=== PATIENT | female | born 1945 | race Caucasian/White ===

== ENCOUNTER 2019-07-12 00:25 | Inpatient (IN) | payer MEDICARE, SELFPAY ==
[2019-07-12 01:08] LABS: #Eosinphils 0.3 thou/uL (0.0-0.7); #Lymphocytes 1.7 thou/uL (1.20-3.40); #Monocytes 0.7 thou/uL (0.11-0.59); #Neutrophils 8.1 thou/uL (1.40-6.50); %Basophils 0.2 % (0.0-1.0); %Eosinophils 2.4 % (0.0-10.0); %Lymphocytes 15.4 % (21.0-51.0); %Monocytes 6.7 % (0.0-10.0); %Neutrophils 75.2 % (42.0-75.0); Hemoglobin 14.4 g/dL (12.0-16.0); Mean Corpuscular HGB CONC 33.7 g/dL (32.0-36.0); Mean Corpuscular Hemoglobin 30.8 pg (27.0-31.0); Mean Corpuscular Volume 91.4 fL (78.0-98.0); Mean Platelet Volume 7.6 fL (7.4-10.4); Platelet Count 173 thou/uL (130-400); RBC Distribution Width 13.2 % (11.5-14.5); Red Blood Cell (RBC) Count 4.69 mill/uL (4.20-5.40); White Blood Cell (WBC) Count 10.7 thou/uL (4.8-10.8)
[2019-07-12 01:15] LABS: INR-International Normal Ratio 1.1; PTT 34.1 SEC (22.9-36.1); Prothrombin Time 14.3 SEC (12.0-14.7)
[2019-07-12 01:24] LABS: ALT (SGPT) 9 U/L (8-55); AST (SGOT) 14 U/L (5-34); Albumin 3.7 g/dL (3.4-4.8); Alkaline Phosphatase 64 U/L (40-110); Anion Gap 14 mmol/L (10-20); BUN (Urea Nitrogen) 14 mg/dL (9.8-20.1); Bilirubin, Total 0.9 mg/dL (0.2-1.2); Calc. Creatinine Clearance 0 mL/min (70-130); Calcium 8.3 mg/dL (7.8-10.44); Carbon Dioxide 23 mmol/L (23-31); Chloride 101 mmol/L (98-107); Estimated GFR-MDRD 45; Globulin 3.4 g/dL (2.4-3.5); Glucose 144 mg/dL (83-110); Potassium 3.6 mmol/L (3.5-5.1); Protein, Total 7.1 g/dL (6.0-8.3); Sodium 134 mmol/L (136-145)
[2019-07-12 01:31] LABS: Bilirubin Negative (Negative); Blood, Urine 1+ (Negative); Clarity Clear (Clear); Glucose, Urine (Dipstick) Normal (Negative); Leukocyte Negative Leu/uL (Negative); Nitrite Negative (Negative); Protein, Urine (Dipstick) 50 mg/dL (Neg-Trace); Squamous Epithelial 0-3 HPF (0-3); Urobilinogen Normal mg/dL (Less than 2)
[2019-07-12] MEDS ORDERED: cefTRIAXone\\ROCEPHIN 1 GM VIAL ONE (01:41)
[2019-07-12 01:46] LABS: Bacteria/HPF 1+ HPF (None Seen)
[2019-07-12] MEDS ORDERED: Ondansetron PF 4 MG/2 ML Vial IVP PRN (02:35)
[2019-07-12] MEDS ORDERED: Acetaminophen 650 MG Suppository PR PRN (02:35)
[2019-07-12] MEDS ORDERED: Sodium Chloride 0.9% 1,000 ML IV SCH (02:45)
[2019-07-12] MEDS ORDERED: Acetaminophen 500 MG TAB ONE (03:11)
--- NOTE | 2019-07-12 03:28 | HP ---
TIME OF ASSESSMENT: 0200 hours. PRIMARY CARE PHYSICIAN: None. CHIEF COMPLAINT: Weakness. HISTORY OF PRESENT ILLNESS: Ms. Mo is a 74-year-old woman, who was in her usual state of health until this morning when she woke up feeling generally weak and having trouble standing due to weakness. The patient was mobilizing independently as she normally does yesterday. Denies feeling unwell in recent days. Today, she reports urinary frequency with small amounts of urine at a time. She denies any fevers, but does report chills throughout the day. Denies any nausea or vomiting. Reports mild lower abdominal discomfort. Denies having any chest pain or palpitations. Reports feeling slightly short of breath prior to coming in, but that has since settled. She does have a known history of COPD and uses her inhalers regularly. Denies having any recent cough or hemoptysis. No lower leg swelling or edema. No changes with her stools. Daughter and patient both state that she has had issues with weakness before as a result of a urinary tract infection. In the emergency department, she underwent urinalysis, which showed 50 protein, 1+ blood, 7 to 10 red blood cells, 7 to 10 white blood cells, 1+ bacteria. Her labs were notable for white count of 10.7, neutrophils of 75.2%. Lactic acid of 2.6. BUN 14, creatinine 1.17, GFR 45. No recent laboratory studies to compare to. Remaining labs showed a potassium of 3.6, sodium of 134, anion gap 14, total bilirubin 0.9, AST 14, ALT 9. Troponin negative. Alkaline phosphatase 64. BNP 17.1, albumin 3.7. Chest x-ray was also done, though, the report is not available. Per ED physician, it was unremarkable. Given results of urinalysis and history of UTIs, the patient was started on IV antibiotics with Rocephin. She is being admitted for UTI and sepsis. On initial presentation to the ED, she reportedly was hypotensive with a blood pressure of 89/51, which improved following IV fluids. She also had a low-grade temperature of 99.7. REVIEW OF SYSTEMS: All other review of systems apart from those mentioned above in HPI are negative. ALLERGIES: PENICILLIN AND SULFA. CURRENT MEDICATIONS: PAST MEDICAL HISTORY: 1. Hyperlipidemia. 2. Hypertension. 3. COPD. 4. History of recurrent UTIs. PAST SURGICAL HISTORY: 1. Stomach surgery x2. 2. Appendectomy. 3. Tonsillectomy. SOCIAL HISTORY: The patient lives with her family. She is a previous smoker. She quit more than 10 years ago. Denies any alcohol consumption or illicit drug use. PHYSICAL EXAMINATION: GENERAL: The patient appears generally unwell. She is in no acute distress. VITAL SIGNS: Temperature 99.7, pulse 94, blood pressure 116/46, respirations 23, O2 saturations 95% on 2 L. HEENT: Normocephalic and atraumatic. Pupils are equal, round, and reactive to light. Sclerae without icterus. Oropharynx is clear. NECK: Supple. No lymphadenopathy. LUNGS: Clear to auscultation bilaterally without wheezes, rales, or rhonchi. CARDIAC: Regular rate and rhythm without audible murmurs, rubs, or gallops. ABDOMEN: Soft, nontender, nondistended. Normoactive bowel sounds present. No guarding or rigidity. No renal angle tenderness. EXTREMITIES: No lower leg edema. NEUROLOGIC: Alert and oriented x3. SKIN: Warm and dry. INVESTIGATIONS: As mentioned above in HPI. IMPRESSION AND PLAN: Ms. Mo is a 74-year-old woman, who presented with generalized weakness that started suddenly today as well as chills, low-grade temperature, and hypotension, who is being admitted for management of the following. 1. Sepsis secondary to urinary tract infection. The patient with slightly elevated lactic acid of 2.6. Blood pressure improved following fluids. She has been started on IV antibiotics, which we will continue. Urine culture pending. Blood cultures have been obtained as well. Chest x-ray done and unremarkable, however, report currently pending. We will obtain a postvoid bladder scan to assess for retention and potential need for Knowles catheter. 2. Elevated creatinine of 1.17. The patient likely with acute on chronic kidney injury, however, no recent labs to compare to. Continue to monitor renal function. We will give gentle hydration. 3. Hypertension. Hold antihypertensives given low blood pressure. Resume home medications if blood pressure begins to rise. 4. Hyperlipidemia. Resume home medications once verified. 5. Chronic obstructive pulmonary disease. We will give DuoNeb as needed. The patient without any shortness of breath or wheezing at present. Awaiting chest x-ray report. 6. Generalized weakness. Likely secondary to underlying urinary tract infection. PT/OT consult ordered. The patient is normally ambulates independently at baseline and weakness just started today. 7. Gastrointestinal prophylaxis with famotidine. 8. Deep venous thrombosis prophylaxis with mechanical SCDs. 9. Code status, full. Surrogate decision maker is her daughter, Robyn Johns. The patient's case was discussed with Dr. Horvath, who agrees upon care as described above. Job ID: [id number]
[2019-07-12 03:39] LABS: #Basophils 0.1 thou/uL (0.0-0.2); #Eosinphils 0.2 thou/uL (0.0-0.7); #Lymphocytes 1.9 thou/uL (1.20-3.40); #Monocytes 0.7 thou/uL (0.11-0.59); #Neutrophils 7.8 thou/uL (1.40-6.50); %Basophils 0.5 % (0.0-1.0); %Eosinophils 1.9 % (0.0-10.0); %Lymphocytes 17.9 % (21.0-51.0); %Monocytes 6.3 % (0.0-10.0); %Neutrophils 73.4 % (42.0-75.0); Hemoglobin 12.8 g/dL (12.0-16.0); Mean Corpuscular HGB CONC 33.8 g/dL (32.0-36.0); Mean Corpuscular Hemoglobin 30.5 pg (27.0-31.0); Mean Corpuscular Volume 90.2 fL (78.0-98.0); Mean Platelet Volume 7.1 fL (7.4-10.4); Platelet Count 161 thou/uL (130-400); Red Blood Cell (RBC) Count 4.19 mill/uL (4.20-5.40); White Blood Cell (WBC) Count 10.6 thou/uL (4.8-10.8)
[2019-07-12 03:58] LABS: Lactic Acid 1.4 mmol/L (0.5-2.2)
[2019-07-12 04:02] LABS: Anion Gap 14 mmol/L (10-20); BUN (Urea Nitrogen) 12 mg/dL (9.8-20.1); Calc. Creatinine Clearance 0 mL/min (70-130); Calcium 7.5 mg/dL (7.8-10.44); Carbon Dioxide 20 mmol/L (23-31); Chloride 105 mmol/L (98-107); Estimated GFR-MDRD 59; Glucose 129 mg/dL (83-110); Potassium 3.6 mmol/L (3.5-5.1); Sodium 135 mmol/L (136-145)
[2019-07-12 05:20] VITALS: BMI 46.9
--- NOTE | 2019-07-12 08:04 | RAD ---
PORTABLE CHEST: HISTORY: Chest pain and shortness of breath. FINDINGS: Lungs appear clear. No infiltrate or vascular congestion. Heart and mediastinum appear normal. IMPRESSION: No acute process. POS: [facility]
[2019-07-12] MEDS: Famotidine/PF 20 mg/2ml Vial SLOW IVP SCH ×2 (08:08→20:19)
--- NOTE | 2019-07-12 18:23 | PDOC.HOSPP ---
- Subjective Encounter Date: 07/12/19 Encounter Time: 11:41 Subjective: 74 y/o female with COPD, HTN, recurrent UTI associated with encephalopathy admmitted with acute onset of generalized weakness and urinary frequency. UA is suggestive of UTI and she was started on IVF and antibiotics. Denied fever. - Objective Vital Signs & Weight: Vital Signs (12 hours) Temp Pulse Resp BP Pulse Ox 07/12/19 16:00 98.5 F 79 18 106/69 96 07/12/19 12:00 98.5 F 76 18 108/69 97 07/12/19 07:53 98.2 F 75 18 105/66 95 07/12/19 06:55 72 16 97 Weight Weight 273 lb 5.971 oz I&O: 07/11/19 07/12/19 07/13/19 06:59 06:59 06:59 Intake Total 400 Output Total 30 Balance 370 Result Diagrams: 07/12/19 03:30 07/12/19 03:30 Hospitalist ROS - Medication Medications: Active Medications Generic Name Dose Route Start Last Admin Trade Name Brijeshq PRN Reason Stop Dose Admin Albuterol/Ipratropium 3 ml 07/12/19 07:00 07/12/19 12:40 Duoneb NEB 3 ml [id number] LARRY Administration Famotidine 20 mg 07/12/19 09:00 07/12/19 08:08 Pepcid SLOW IVP 20 mg Q12HR LARRY Administration - Exam General Appearance: awake alert General - other findings: obese Eye: anicteric sclera ENT: normocephalic atraumatic Neck: symmetric, no JVD Heart: RRR Respiratory: no wheezes, no rales, no ronchi, normal chest expansion Gastrointestinal: soft, non-tender, non-distended, normal bowel sounds Extremities: no cyanosis, no edema Neurological: cranial nerve grossly intact, no focal deficits Psychiatric: A&O x 3 Hosp A/P (1) UTI (urinary tract infection) Status: Acute (2) Physical deconditioning Code(s): R53.81 - OTHER [place] Status: Acute (3) Metabolic acidosis Code(s): E87.2 - ACIDOSIS Status: Acute (4) CAD (coronary artery disease) Code(s): I25.10 - ATHSCL HEART DISEASE OF [place] CORONARY ARTERY W/O ANG PCTRS Status: Chronic Qualifiers: Coronary Disease-Associated Artery/Lesion type: [place] artery [place] vs. transplanted heart: [place] heart Associated angina: without angina Qualified Code(s): I25.10 - Atherosclerotic heart disease of [place] coronary artery without angina pectoris (5) HLD (hyperlipidemia) Code(s): E78.5 - HYPERLIPIDEMIA, UNSPECIFIED Status: Chronic Qualifiers: Hyperlipidemia type: unspecified Qualified Code(s): E78.5 - Hyperlipidemia , unspecified (6) HTN (hypertension) Code(s): I10 - ESSENTIAL (PRIMARY) HYPERTENSION Status: Chronic Qualifiers: Hypertension type: essential hypertension Qualified Code(s): I10 - Essential (primary) hypertension (7) Hypothyroidism Code(s): E03.9 - HYPOTHYROIDISM, UNSPECIFIED Status: Chronic Qualifiers: Hypothyroidism type: unspecified Qualified Code(s): E03.9 - Hypothyroidism , unspecified (8) Morbid obesity with BMI of 45.0-49.9, adult Code(s): E66.01 - MORBID (SEVERE) OBESITY DUE TO EXCESS CALORIES; Z68.42 - BODY MASS INDEX (BMI) 45.0-49.9, ADULT Status: Chronic - Plan Continue antibiotics. Await urine culture. Substitute NS with LR due to worsening hyperchloremic acidosis PT/OT eval and treatments.
[2019-07-12] MEDS: Lactated Ringer's 1,000 ML IV SCH (19:21)
[2019-07-12] MEDS ORDERED: FLU VACC TS2019-20(65YR UP)/PF 180 MCG/0.5 ML SYRINGE IM ONE (21:00)
[2019-07-13] MEDS ORDERED: cefTRIAXone\\ROCEPHIN 1 GM in Sodium Chloride 0.9% 100 ML IVPB SCH (01:30)
[2019-07-13] MEDS: Acetaminophen 325 MG TAB PO PRN ×2 (01:36→15:50)
[2019-07-13 07:16] LABS: Hemoglobin 12.4 g/dL (12.0-16.0); Mean Corpuscular HGB CONC 33.6 g/dL (32.0-36.0); Mean Corpuscular Hemoglobin 31.1 pg (27.0-31.0); Mean Corpuscular Volume 92.3 fL (78.0-98.0); Mean Platelet Volume 7.4 fL (7.4-10.4); Platelet Count 139 thou/uL (130-400); White Blood Cell (WBC) Count 7.7 thou/uL (4.8-10.8)
[2019-07-13 07:24] LABS: Albumin 2.9 g/dL (3.4-4.8); Anion Gap 12 mmol/L (10-20); BUN (Urea Nitrogen) 8 mg/dL (9.8-20.1); BUN/Creatinine Ratio 10.26; Calc. Creatinine Clearance 124 mL/min (70-130); Calcium 7.8 mg/dL (7.8-10.44); Carbon Dioxide 22 mmol/L (23-31); Chloride 109 mmol/L (98-107); Estimated GFR-MDRD 72; Glucose 93 mg/dL (83-110); Phosphorus 2.9 mg/dL (2.3-4.7); Potassium 3.3 mmol/L (3.5-5.1); Sodium 140 mmol/L (136-145)
[2019-07-13] MEDS: Famotidine/PF 20 mg/2ml Vial SLOW IVP SCH (08:21)
[2019-07-13] MEDS: Lactated Ringer's 1,000 ML IV SCH (08:21)
[2019-07-13] MEDS ORDERED: Potassium Chloride 20 MEQ TAB PO SCH (13:30)
[2019-07-13 15:48] VITALS: TEMP 97.7
[2019-07-13 19:53] VITALS: BP 125/67
== END 2019-07-13 19:45 | disposition home or self-care (01) | DRG 872 ==
LOC: ERS 00:25 → T4-B 02:36
PROVIDERS: ADMIT Internal Medicine; ATTEND Internal Medicine
DX: A41.9 Sepsis, unspecified organism (principal); E87.2 Acidosis; N39.0 Urinary tract infection, site not specified; Z68.42 Body mass index [BMI] 45.0-49.9, adult; N17.9 Acute kidney failure, unspecified; E78.5 Hyperlipidemia, unspecified; I25.10 Atherosclerotic heart disease of native coronary artery without angina pectoris; E78.00 Pure hypercholesterolemia, unspecified; I12.9 Hypertensive chronic kidney disease with stage 1 through stage 4 chronic kidney disease, or unspecified chronic kidney disease; N18.9 Chronic kidney disease, unspecified; J44.9 Chronic obstructive pulmonary disease, unspecified; E03.9 Hypothyroidism, unspecified; E66.01 Morbid (severe) obesity due to excess calories; Z90.49 Acquired absence of other specified parts of digestive tract; Z87.891 Personal history of nicotine dependence
CPT/HCPCS: 36415; 51701; 71045; 80053; 80069; 81003; 81015; 82306; 83605; 83690; 83735; 83880; 84443; 84484; 85025; 85027; 85610; 85730; 87040; 87086; 87633; 93005; 94640; 96365; A4353; J0696; J3490; J7620; S0028

== ENCOUNTER 2025-02-21 23:01 | Inpatient (IN) | payer MEDICARE ==
[2025-02-22 00:22] LABS: Magnesium 1.8 mg/dL (1.6-2.6)
[2025-02-22 00:24] LABS: Troponin I 0.016 ng/mL (< 0.028)
[2025-02-22] MEDS ORDERED: cefTRIAXone (ROCEPHIN) 1 GM VIAL ONE (01:26)
[2025-02-22] MEDS ORDERED: Calcium Carbonate 500 MG ChewTAB PO PRN (03:52)
[2025-02-22] MEDS ORDERED: Ondansetron PF 4 MG/2 ML Vial IVP PRN (03:52)
[2025-02-22 06:08] LABS: Troponin I 0.021 ng/mL (< 0.028)
[2025-02-22] MEDS: Aspirin Chewable 81 MG TAB PO SCH (06:24)
[2025-02-22] MEDS ORDERED: Senokot S 8.6-50 MG TAB PO PRN (08:14)
[2025-02-22 08:55] LABS: Anion Gap 14 mmol/L (10-20); BUN (Urea Nitrogen) 18 mg/dL (9.8-20.1); Calc. Creatinine Clearance 129 mL/min (70-130); Calcium 8.4 mg/dL (7.8-10.44); Carbon Dioxide 24 mmol/L (23-31); Chloride 105 mmol/L (98-107); Glucose 130 mg/dL (83-110); Potassium 4.0 mmol/L (3.5-5.1); Sodium 139 mmol/L (136-145)
[2025-02-22] MEDS ORDERED: Glucagon 1 MG/ML KIT IM PRN (11:46)
[2025-02-22] MEDS ORDERED: Dextrose 50% Abboject 50 ML SYRINGE SLOW IVP PRN (11:46)
[2025-02-22] MEDS ORDERED: Iopamidol-370 76% 500 ML MDV (1 ML CHARGE) ONE (12:04)
[2025-02-22] MEDS: Furosemide 40 MG (4 mL) VIAL SLOW IVP SCH (15:54)
[2025-02-22] MEDS: Enoxaparin 40 MG (0.4 mL) SYRINGE SC SCH (15:54)
[2025-02-22] MEDS: Carvedilol 3.125 MG TAB PO SCH (16:09)
[2025-02-22 17:29] LABS: Cardiac Risk 4.5 (Less than 4.5); Cholesterol 143 mg/dl (< 200 Desired); HDL Cholesterol 32 mg/dL (>60 Neg Risk); Triglycerides 468 mg/dL (Less than 150); Troponin I 0.014 ng/mL (< 0.028)
[2025-02-22] MEDS: Mometasone 200 MCG/Formoterol 5 MCG 120 PUFF INHALER INH SCH (19:58)
[2025-02-22] MEDS: Insulin Glargine 30 UNITS/0.3 ML VIAL SC SCH (20:18)
[2025-02-22] MEDS: Acetaminophen 325 MG TAB PO PRN (22:34)
[2025-02-22 23:50] LABS: Troponin I 0.013 ng/mL (< 0.028)
[2025-02-23 03:52] LABS: #Basophils 0.04 10x3/uL (0.0-0.2); #Eosinophils 0.36 10x3/uL (0.0-0.7); #Monocytes 0.70 10x3/uL (0.11-0.59); #Neutrophils 3.73 10x3/uL (1.40-6.50); %Basophils 0.5 % (0.0-1.0); %Eosinophils 4.4 % (0.0-10.0); %Lymphocytes 40.9 % (21.0-51.0); %Monocytes 8.5 % (0.0-10.0); %Neutrophils 45.5 % (42.0-75.0); Hematocrit 41.9 % (36.0-47.0); Hemoglobin 13.0 g/dL (12.0-16.0); Mean Corpuscular Hemoglobin 29.1 pg (27.0-31.0); Mean Corpuscular Volume 93.9 fL (78.0-98.0); Platelet Count 172 10x3/uL (130-400); Red Blood Cell (RBC) Count 4.46 mill/uL (4.20-5.40); White Blood Cell (WBC) Count 8.21 10x3/uL (4.8-10.8)
[2025-02-23 04:11] LABS: ALT (SGPT) 11 U/L (Less than 34); AST (SGOT) 20 U/L (11-34); Albumin 3.2 g/dL (3.1-4.5); Alkaline Phosphatase 47 U/L (40-110); Anion Gap 17 mmol/L (10-20); BUN (Urea Nitrogen) 15 mg/dL (9.8-20.1); Calcium 8.4 mg/dL (7.8-10.44); Carbon Dioxide 27 mmol/L (23-31); Chloride 104 mmol/L (98-107); Globulin 3.1 g/dL (2.4-3.5); Glucose 125 mg/dL (83-110); Potassium 3.6 mmol/L (3.5-5.1); Sodium 144 mmol/L (136-145)
[2025-02-23 04:48] LABS: Bilirubin, Total 0.4 mg/dL (0.3-1.2); Calc. Creatinine Clearance 122 mL/min (70-130)
[2025-02-23] MEDS: Aspirin Chewable 81 MG TAB PO SCH (12:27)
[2025-02-23] MEDS: CEFAZOLIN 2 GM VIAL ONE ×2 (12:29→13:26)
[2025-02-24] MEDS: Furosemide 40 MG TAB PO SCH (09:47)
[2025-02-24] MEDS: Sacubitril 24MG/Valsartan 26 MG TAB PO SCH (21:22)
[2025-02-25] MEDS: Melatonin 3 MG TAB PO PRN (00:37)
[2025-02-25] MEDS: Cephalexin 250 MG CAP PO SCH (16:29)
[2025-02-26] MEDS: Dapagliflozin Propanediol 10 MG TAB PO SCH (08:53)
[2025-02-27] MEDS: Albuterol 1.25 MG (3 mL) NEB NEB PRN (01:00)
[2025-02-27] MEDS: Furosemide 20 MG (2 mL) VIAL SLOW IVP SCH (02:25)
[2025-02-27 02:26] LABS: #Basophils 0.05 10x3/uL (0.0-0.2); #Eosinophils 0.40 10x3/uL (0.0-0.7); #Monocytes 0.62 10x3/uL (0.11-0.59); #Neutrophils 4.40 10x3/uL (1.40-6.50); %Basophils 0.5 % (0.0-1.0); %Eosinophils 4.4 % (0.0-10.0); %Lymphocytes 39.9 % (21.0-51.0); %Monocytes 6.8 % (0.0-10.0); %Neutrophils 48.2 % (42.0-75.0); Hematocrit 41.6 % (36.0-47.0); Hemoglobin 12.6 g/dL (12.0-16.0); Mean Corpuscular Hemoglobin 29.0 pg (27.0-31.0); Mean Corpuscular Volume 95.9 fL (78.0-98.0); Platelet Count 181 10x3/uL (130-400); Red Blood Cell (RBC) Count 4.34 mill/uL (4.20-5.40); White Blood Cell (WBC) Count 9.13 10x3/uL (4.8-10.8)
[2025-02-27 03:00] LABS: Anion Gap 15 mmol/L (10-20); BUN (Urea Nitrogen) 13 mg/dL (9.8-20.1); Calc. Creatinine Clearance 129 mL/min (70-130); Calcium 8.7 mg/dL (7.8-10.44); Carbon Dioxide 26 mmol/L (23-31); Chloride 104 mmol/L (98-107); Glucose 120 mg/dL (83-110); Potassium 3.4 mmol/L (3.5-5.1); Sodium 142 mmol/L (136-145)
[2025-02-27 12:10] VITALS: BP 106/57; TEMP 97.5
== END 2025-02-27 16:33 | disposition home health service (06) | DRG 602 ==
LOC: ERS 23:01 → 2SE 02-22 03:45 → OBSVTOIN 02-23 11:58
PROVIDERS: ADMIT Student in an Organized Health Care Education/Training Program; ATTEND Internal Medicine
DX: L03.115 Cellulitis of right lower limb (principal); I50.33 Acute on chronic diastolic (congestive) heart failure; I42.0 Dilated cardiomyopathy; Z68.42 Body mass index [BMI] 45.0-49.9, adult; F03.A0 Unspecified dementia, mild, without behavioral disturbance, psychotic disturbance, mood disturbance, and anxiety; I11.0 Hypertensive heart disease with heart failure; J44.9 Chronic obstructive pulmonary disease, unspecified; Z66 Do not resuscitate; E03.9 Hypothyroidism, unspecified; I44.7 Left bundle-branch block, unspecified; E11.42 Type 2 diabetes mellitus with diabetic polyneuropathy; E66.01 Morbid (severe) obesity due to excess calories; Z96.653 Presence of artificial knee joint, bilateral; Z88.0 Allergy status to penicillin; Z88.2 Allergy status to sulfonamides; Z90.49 Acquired absence of other specified parts of digestive tract; Z98.890 Other specified postprocedural states; Z90.89 Acquired absence of other organs; Z87.891 Personal history of nicotine dependence; Z71.3 Dietary counseling and surveillance
CPT/HCPCS: 36415; 36416; 70450; 71045; 71275; 78452; 78472; 80048; 80053; 80061; 83036; 83735; 83880; 84443; 84484; 85025; 85379; 93005; 93017; 93306; 94640; 94760; 96365; 96372; 96375; 96376; 97139; A9502; A9560; G0378; J0696; J1644; J1650; J1815; J1940; J2785; Q9967